=== PATIENT | male | born 1970 | race American Indian/Alaskan Native ===

== ENCOUNTER 2017-05-05 14:28 | Emergency (ER) | payer SELFPAY ==
[2017-05-05 15:37] VITALS: BP 110/70
== END 2017-05-06 04:35 | disposition left against medical advice (07) ==
LOC: ED 14:28
DX: Z53.21 Procedure and treatment not carried out due to patient leaving prior to being seen by health care provider (principal)

== ENCOUNTER 2021-05-31 15:15 | Emergency (ER) | payer SELFPAY ==
[2021-05-31] MEDS ORDERED: LORazepam 1 MG TAB PO ONE (16:05)
[2021-05-31 16:24] LABS: Basophils # (Auto) 0.1 K/mm3 (0.0-0.1); Eosinophils # (Auto) 0.1 K/mm3 (0.0-0.4); Eosinophils % (Auto) 1.8 % (0.0-4.3); Hematocrit 43.5 % (35.5-45.6); Hemoglobin 14.1 gm/dl (11.8-15.2); Lymphocytes # (Auto) 2.2 K/mm3 (1.2-5.4); Lymphocytes % (Auto) 38.6 % (13.4-35.0); Mean Corpuscular HGB Conc 33 % (32-34); Mean Corpuscular Volume 94 fl (84-94); Monocytes # (Auto) 0.8 K/mm3 (0.0-0.8); Monocytes % (Auto) 14.5 % (0.0-7.3); Platelet Count 315 K/mm3 (140-440); Red Blood Count 4.65 M/mm3 (3.65-5.03); Red Cell Distribution Width 13.7 % (13.2-15.2)
--- NOTE | 2021-05-31 16:29 | Emergency Department Report ---
HPI - General Chief Complaint: Chest Pain Time Seen by Provider: 05/31/21 15:43 - HPI HPI: 50-year-old male with history of generalized anxiety disorder with somatic symptoms and history of herniated disc in the cervical region presents complaining of 1 week of mid substernal chest pain. He reports that the pain has been constant and feels pressure-like, radiating from the front to the back. Over that same period of time he reports he has had a mild cough and intermittent palpitations. He reports feeling very anxious and says he has not been taking his prescribed anxiety medications because they make him lethargic. He says that these symptoms are similar to somatic symptoms of anxiety he has had in the past. He says he has had several trips to the emergency room with similar symptoms and was diagnosed with anxiety. He has not tried taking anything for his symptoms. He self medicates with marijuana which he smokes. He denies use of any other drugs. He denies any associated radiation of the pain, nausea/vomiting, shortness of breath, headache, vision change, abdominal pain, focal weakness, sensory changes, or any other complaints. He is not vaccinated against COVID-19. He has been diagnosed with COVID-19 twice in the past 2 years. ED Past Medical Hx - Past Medical History Previous Medical History?: Yes Additional medical history: Anxiety disorder - Social History Smoking Status: Former Smoker Substance Use Type: Alcohol, Marijuana - Medications Home Medications: Home Medications Medication Instructions Recorded Confirmed Last Taken Type Acetaminophen/Codeine 1 tab PO Q6H PRN #15 tab 04/24/14 Unknown Rx [Acetaminophen-Codeine #3 TAB] Amoxicillin 500 mg PO TID #30 tablet 04/24/14 Unknown Rx Aspirin EC [Ecotrin] 325 mg PO QDAY #30 tablet. 05/31/21 Unknown Rx ED Review of Systems ROS: Stated complaint: CHEST PAIN Other details as noted in HPI Comment: All other systems reviewed and negative Constitutional: denies: chills, fever Eyes: denies: eye pain, vision change ENT: denies: throat pain Respiratory: cough. denies: shortness of breath Cardiovascular: chest pain, palpitations. denies: syncope Gastrointestinal: denies: abdominal pain, nausea, vomiting Genitourinary: denies: dysuria, frequency Musculoskeletal: back pain. denies: arthralgia Skin: denies: rash, lesions Neurological: denies: headache, weakness, numbness Psychiatric: anxiety. denies: auditory hallucinations, visual hallucinations, homicidal thoughts, suicidal thoughts Physical Exam - Physical Exam Vital Signs: Vital Signs 05/31/21 15:32 Temperature 98.3 F Pulse Rate 67 Respiratory 18 Rate Blood Pressure 106/62 O2 Sat by Pulse 98 Oximetry Physical Exam: GENERAL: Well developed and well nourished. No acute distress HEAD: Normocephalic. No obvious signs of trauma. ENT: Slightly dry mucous membranes. EYES: Extraocular movements are intact. Pupils are equal round and reactive to light bilaterally NECK: Supple. Full ROM is intact. Trachea is midline. LUNGS: Nonlabored breathing. Equal chest rise bilaterally. Clear to auscultation bilaterally. CARDIOVASCULAR: Regular rate and rhythm. No murmurs or rubs. VASCULAR: Cap refill < 2 seconds ABDOMEN: Abdomen is soft and nondistended. There is mild tenderness to palpation over the right upper quadrant and right lower quadrant, although patient seems sensitive to touch on the left side as well. There is no guarding or rebound tenderness. SKIN: Skin is warm and dry NEURO: Patient is awake, alert, and oriented. 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 No focal deficits. Normal motor and sensory exam throughout. Normal speech. MUSCULOSKELETAL: No obvious deformities. No significant tenderness. Normal ROM throughout. BACK/SPINE: No midline tenderness or step-offs of the C/T/L spine. Bilateral CVA tenderness ED Course Vital Signs 05/31/21 15:32 Temperature 98.3 F Pulse Rate 67 Respiratory 18 Rate Blood Pressure 106/62 O2 Sat by Pulse 98 Oximetry ED Medical Decision Making - Lab Data Result diagrams: 05/31/21 16:09 05/31/21 16:09 Lab Results 05/31/21 05/31/21 05/31/21 Range/Units 16:04 16:09 16:09 WBC 5.7 (4.5-11.0) K/mm3 RBC 4.65 (3.65-5.03) M/mm3 Hgb 14.1 (11.8-15.2) gm/dl Hct 43.5 (35.5-45.6) % MCV 94 (84-94) fl MCH 30 (28-32) pg MCHC 33 (32-34) % RDW 13.7 (13.2-15.2) % Plt Count 315 (140-440) K/mm3 Lymph % (Auto) 38.6 H (13.4-35.0) % [place] % (Auto) 14.5 H (0.0-7.3) % Eos % (Auto) 1.8 (0.0-4.3) % Baso % (Auto) 1.0 (0.0-1.8) % Lymph # (Auto) 2.2 (1.2-5.4) K/mm3 [place] # (Auto) 0.8 (0.0-0.8) K/mm3 Eos # (Auto) 0.1 (0.0-0.4) K/mm3 Baso # (Auto) 0.1 (0.0-0.1) K/mm3 Seg Neutrophils % 44.1 (40.0-70.0) % Seg Neutrophils # 2.5 (1.8-7.7) K/mm3 PT (12.2-14.9) Sec. INR (0.87-1.13) APTT (24.2-36.6) Sec. D-Dimer (0-234) ng/mlDDU Sodium 142 (137-145) mmol/L Potassium 4.2 (3.6-5.0) mmol/L Chloride 106.3 (98-107) mmol/L Carbon Dioxide 24 (22-30) mmol/L Anion Gap 16 mmol/L BUN 13 (9-20) mg/dL Creatinine 0.9 (0.8-1.3) mg/dL Estimated GFR > 60 ml/min BUN/Creatinine Ratio 14 % Glucose 89 (75-100) mg/dL Calcium 9.4 (8.4-10.2) mg/dL Total Bilirubin 0.30 (0.1-1.2) mg/dL Direct Bilirubin < 0.2 (0-0.2) mg/dL Indirect Bilirubin 0.1 mg/dL AST 17 (5-40) units/L ALT 13 (7-56) units/L Alkaline Phosphatase 79 (35-129) units/L Troponin T < 0.010 (0.00-0.029) ng/mL Total Protein 7.1 (6.3-8.2) g/dL Albumin 4.4 (3.9-5) g/dL Albumin/Globulin Ratio 1.6 % Lipase 71 H (13-60) units/L Urine Color (Yellow) Urine Turbidity (Clear) Urine pH (5.0-7.0) Ur Specific [place] (1.003-1.030) Urine Protein (Negative) mg/dL Urine Glucose (UA) (Negative) mg/dL Urine Ketones (Negative) mg/dL Urine Blood (Negative) Urine Nitrite (Negative) Urine Bilirubin (Negative) Urine Urobilinogen (<2.0) mg/dL Ur Leukocyte Esterase (Negative) Urine WBC (Auto) (0.0-6.0) /HPF Urine RBC (Auto) (0.0-6.0) /HPF Urine Opiates Screen Negative Urine Methadone Screen Negative Ur Barbiturates Screen Negative Ur Phencyclidine Scrn Negative Ur Amphetamines Screen Negative U Benzodiazepines Scrn Negative Urine Cocaine Screen Negative U Marijuana (THC) Screen Positive Drugs of Abuse Note Disclamer 05/31/21 05/31/21 05/31/21 Range/Units 18:48 19:26 20:53 WBC (4.5-11.0) K/mm3 RBC (3.65-5.03) M/mm3 Hgb (11.8-15.2) gm/dl Hct (35.5-45.6) % MCV (84-94) fl MCH (28-32) pg MCHC (32-34) % RDW (13.2-15.2) % Plt Count (140-440) K/mm3 Lymph % (Auto) (13.4-35.0) % [place] % (Auto) (0.0-7.3) % Eos % (Auto) (0.0-4.3) % Baso % (Auto) (0.0-1.8) % Lymph # (Auto) (1.2-5.4) K/mm3 [place] # (Auto) (0.0-0.8) K/mm3 Eos # (Auto) (0.0-0.4) K/mm3 Baso # (Auto) (0.0-0.1) K/mm3 Seg Neutrophils % (40.0-70.0) % Seg Neutrophils # (1.8-7.7) K/mm3 PT 13.9 (12.2-14.9) Sec. INR 0.96 (0.87-1.13) APTT 27.4 (24.2-36.6) Sec. D-Dimer 160.52 (0-234) ng/mlDDU Sodium (137-145) mmol/L Potassium (3.6-5.0) mmol/L Chloride (98-107) mmol/L Carbon Dioxide (22-30) mmol/L Anion Gap mmol/L BUN (9-20) mg/dL Creatinine (0.8-1.3) mg/dL Estimated GFR ml/min BUN/Creatinine Ratio % Glucose (75-100) mg/dL Calcium (8.4-10.2) mg/dL Total Bilirubin (0.1-1.2) mg/dL Direct Bilirubin (0-0.2) mg/dL Indirect Bilirubin mg/dL AST (5-40) units/L ALT (7-56) units/L Alkaline Phosphatase (35-129) units/L Troponin T < 0.010 (0.00-0.029) ng/mL Total Protein (6.3-8.2) g/dL Albumin (3.9-5) g/dL Albumin/Globulin Ratio % Lipase (13-60) units/L Urine Color Yellow (Yellow) Urine Turbidity Clear (Clear) Urine pH 6.0 (5.0-7.0) Ur Specific [place] 1.013 (1.003-1.030) Urine Protein <15 mg/dl (Negative) mg/dL Urine Glucose (UA) Neg (Negative) mg/dL Urine Ketones Neg (Negative) mg/dL Urine Blood Neg (Negative) Urine Nitrite Neg (Negative) Urine Bilirubin Neg (Negative) Urine Urobilinogen < 2.0 (<2.0) mg/dL Ur Leukocyte Esterase Neg (Negative) Urine WBC (Auto) < 1.0 (0.0-6.0) /HPF Urine RBC (Auto) < 1.0 (0.0-6.0) /HPF Urine Opiates Screen Urine Methadone Screen Ur Barbiturates Screen Ur Phencyclidine Scrn Ur Amphetamines Screen U Benzodiazepines Scrn Urine Cocaine Screen U Marijuana (THC) Screen Drugs of Abuse Note - EKG Data -: EKG Interpreted by Me - EKG Data 05/31/21 17:33 Normal sinus rhythm. Normal axis. Normal intervals. No ectopy. Early repolarization. No significant ST segment or T wave abnormalities. - Radiology Data Radiology results: report reviewed - Medical Decision Making 50-year-old male with history of anxiety with common somatic symptoms, usually manifesting as chest pain presents complaining of 1 week of mid substernal chest pain radiating to the back, severe anxiety, intermittent palpitations as well as cough. Patient admits he has not been taking his anxiety medications because he says it makes him lethargic. He says he has had many presentations to the emergency department in the past for similar symptoms as a result of his anxiety. He is afebrile and with normal vital signs. On physical examination he has a nonfocal neurologic exam. Lungs are clear to auscultation. Heart soun ds are normal. He has slightly dry mucous membranes. He has slight tenderness to palpation of the right upper quadrant and right lower quadrant without guarding or rebound tenderness. Difficult to discern whether this represents true tenderness as patient did not complain of abdominal pain until the physical exam but is also sensitive on the left as well. The patient reports pain in his back but he has no mid spinal tenderness. We will proceed with broad work- up with a full set of labs, EKG, and chest x-ray. We discussed options regarding the patient's abdominal tenderness and I offered the possibility of CT scan of the abdomen but did advise him of the risk of radiation exposure. He does not want to have radiation exposure if not necessary and therefore we will proceed with work-up with labs and other studies as mentioned. We will give 1 dose of p.o. Ativan and reassess the patient's symptoms to determine whether further work-up of abdominal tenderness is warranted. Chest x-ray shows no acute abnormalities Labs have resulted and reveal no significant leukocytosis or anemia. Creatinine is within normal range and there are no significant electrolyte abnormalities. Troponin is negative. The patient's heart score is 1. We will therefore obtain repeat troponin. Lipase is mildly elevated at 71. We will obtain right upper quadrant ultrasound to assess for evidence of cholelithiasis versus cholecystitis versus choledocholithiasis. On repeat assessment at 5 PM, the patient is resting comfortably in the bed. He reports that his anxiety and chest pain have entirely resolved. However, he remains with some mild pain in his right flank. Right upper quadrant ultrasound reveals no acute abnormalities. Repeat assessment at 6:45 PM, the patient remains with a significant pain and tenderness in his right flank and right lower back. Given the persistence of this pain we will obtain CTA of the chest/abdomen to assess for evidence of dissection versus AAA versus other intrathoracic or intra-abdominal abnormality to explain the patient's presentation. At 8:17 PM I received a call from radiology. CTA of the chest/abdomen reveals no evidence of dissection or aneurysm of the aorta but there is findings highly suggestive of left lower lobe pulmonary embolism. Radiologist reports that given the protocol of the CT the diagnosis cannot be definitive but nonetheless is his interpretation. I have ordered coag studies and D-dimer and asked the patient to be moved to a monitored bed. He remains with normal vital signs on the monitor. I discussed with the patient the diagnosis of possible PE and the treatment which is initiation of anticoagulation with blood thinners. The patient was adamant that he does not want to be on blood thinners and says no matter what he will not be put on blood thinners. Given that the diagnosis cannot be definitively proved based on the protocol of the CTA, I recommended to the patient that he see his primary care doctor within the next several days to request repeat CTA of the chest to assess for pulmonary embolism. Because the patient refuses to take blood thinners, I have asked that he take 325 mg of aspirin daily which she has agreed to do until advised otherwise by his primary care doctor. He understands that refusing anticoagulation confers significant risk of temporary/permanent disability and even . He still wants to proceed with discharge. Critical Care Time: Yes Critical care time in (mins) excluding proc time.: 40 Critical care attestation.: . Critical care time was spent in the evaluation/assessment, work-up, and management of chest pain and flank pain and pulmonary embolism requiring multiple types of advanced imaging, repeat reassessment and evaluation, extensive discussion with patient, interpretation of labs and vital signs ED Disposition Clinical Impression: Anxiety, Chest pain, Pulmonary embolism on left Disposition: 01 HOME / SELF CARE / HOMELESS Is pt being admited?: No Condition: Stable Instructions: Nonspecific Chest Pain, Adult, Pulmonary Embolism Additional Instructions: CTA of the chest revealed a possible pulmonary embolism in your left lung which is a blood clot. You have declined blood thinners and so I have recommended that you take full-strength aspirin 325 mg daily until you are able to see your primary care doctor for possible repeat scanning to confirm the presence of a blood clot. Return to the emergency department should you develop any worsening symptoms or new health concerns. Prescriptions: Aspirin EC [Ecotrin] 325 mg PO QDAY #30 tablet. Referrals: [facility] [Provider Group] - 3-5 Days Heart Score - HEART Score History: Slightly suspicious EKG: Normal Age: 45-65 Risk factors: No known risk factors Troponin: < normal limit HEART Score: 1 - EKG Read Time Time EKG Completed: 15:38 EKG Read Time: 15:42
--- NOTE | 2021-05-31 16:31 | XRay Report ---
CHEST 2 VIEWS INDICATION: cough. COMPARISON: None. FINDINGS: Support devices: None. Heart: Within normal limits. Lungs/Pleura: No acute air space or interstitial disease. No significant pleural effusion. IMPRESSION: No acute findings. Signer Name: Daniel Sims MD Signed: 05/31/2021 4:26 PM Workstation Name: [id number]
[2021-05-31 16:44] LABS: Alanine Aminotransferase 13 units/L (7-56); Albumin 4.4 g/dL (3.9-5); BUN/Creatinine Ratio 14; Blood Urea Nitrogen 13 mg/dL (9-20); Calcium 9.4 mg/dL (8.4-10.2); Hemolysis Index 18
[2021-05-31 16:47] LABS: Bilirubin,Direct < 0.2 mg/dL (0-0.2)
--- NOTE | 2021-05-31 18:44 | Ultrasound Report ---
US abdomen limited INDICATION: RUQ tenderness COMPARISON: None. FINDINGS: Pancreas: No significant abnormality identified in the visualized portions of the pancreas. Abdominal aorta: No significant abnormality. IVC: Normal. Liver: No significant abnormality. Gallbladder: Small quantity of sludge. No gallstones, gallbladder wall thickening, or pericholecystic fluid. Bile ducts: The common bile duct measures 5 mm. Right Kidney: No significant abnormality. Additional findings: No significant additional findings. IMPRESSION: No significant sonographic abnormality. Signer Name: Juan Kwon MD Signed: 05/31/2021 6:39 PM Workstation Name: [id number]
[2021-05-31 18:57] LABS: Amphetamine Screen,Urine Negative; Benzodiazepines Screen,Urine Negative; Cocaine Screen,Urine Negative; Methadone Screen,Urine Negative; Opiate Screen,Urine Negative
[2021-05-31 19:00] LABS: Bilirubin,Urine NEG (Negative); Blood,Urine NEG (Negative); Color,Urine Yellow (Yellow); Protein,Urine <15 mg/dL mg/dL (Negative); Urobilinogen,Urine < 2.0 mg/dL (<2.0)
[2021-05-31 19:24] LABS: Cannabinoid Screen,Urine Positive
[2021-05-31 19:32] LABS: RBC,Urine < 1.0 /HPF (0.0-6.0); WBC,Urine < 1.0 /HPF (0.0-6.0)
--- NOTE | 2021-05-31 20:23 | Cat Scan Report ---
. CT angio abdomen pelvis INDICATION / CLINICAL INFORMATION: assess for PE and AAA. TECHNIQUE: CTA of the abdomen and pelvis. MIPS were performed. All CT scans at this location are performed using CT dose reduction for ALARA by means of automated exposure control. COMPARISON: None available. FINDINGS: VASCULATURE: Aorta is normal in caliber. No dissection. No aneurysm. The celiac, hepatic, superior mesenteric, inferior mesenteric arteries, and bilateral rashid arteries a re all patent without occlusion or hemodynamically significant stenosis. ABDOMEN and PELVIS: Lung bases: No significant abnormality. Liver: No significant abnormality. Biliary: No significant abnormality. Spleen: No significant abnormality. Unenlarged. Pancreas: No significant abnormality. Adrenals: No significant abnormality. Kidneys: No significant abnormality. Lymphatics: No lymphadenopathy. Bowel/Peritoneum: No significant abnormality. Pelvis: No significant abnormality. Osseous Structures: No aggressive osseous lesion. Additional Findings: None IMPRESSION: 1. No dissection or aneurysm of the aorta. No acute abnormality of the abdomen or pelvis. Signer Name: Juan Kwon MD Signed: 05/31/2021 8:19 PM Workstation Name: [id number]
--- NOTE | 2021-05-31 20:25 | Cat Scan Report ---
CT angio chest INDICATION / CLINICAL INFORMATION: assess for PE and AAA. TECHNIQUE: Axial CT images were obtained through the chest after injection of IV contrast. 3 plane MIP and/or 3D reconstructions were produced. All CT scans at this location are performed using CT dose reduction f or ALARA by means of automated exposure control. COMPARISON: None available. FINDINGS: PULMONARY ARTERIES: Poor contrast opacification of the pulmonary arteries which decreases the sensiti vity and specificity of this exam. There are filling defects within the left lower lobe pulmonary art eries (images 152 and 163 of series 2), which are suspicious for pulmonary emboli. AORTA: Normal caliber. No dissection. HEART: No significant abnormality. MEDIASTINUM / ILAN: No significant abnormality. LUNGS: Lungs are clear No pleural effusion. No pneumothorax. ADDITIONAL FINDINGS: None. UPPER ABDOMEN: No acute findings. SKELETAL STRUCTURES: No significant osseous abnormality. IMPRESSION: 1. Poor contrast opacification of pulmonary arteries which decreases the specificity of the exam. How ever, there is small quantity of suspected pulmonary emboli seen within the left lower lobe pulmonary arteries. 2. No dissection or aneurysm of the aorta. I informed Dr Rees at 7:20 who informed me they have left sided chest pain. Signer Name: Juan Kwon MD Signed: 05/31/2021 8:21 PM Workstation Name: [id number]
[2021-05-31 21:15] LABS: INR 0.96 (0.87-1.13)
[2021-05-31 21:16] LABS: Partial Thromboplastin Time 27.4 Sec. (24.2-36.6)
[2021-05-31 22:37] VITALS: BP 124/79
--- NOTE | 2021-06-02 14:23 | Electrocardiograph Report ---
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
== END 2021-05-31 22:35 | disposition home or self-care (01) ==
LOC: ED 15:15
DX: F41.9 Anxiety disorder, unspecified (principal); I26.99 Other pulmonary embolism without acute cor pulmonale; F12.90 Cannabis use, unspecified, uncomplicated; Z72.89 Other problems related to lifestyle; Z87.891 Personal history of nicotine dependence; R79.1 Abnormal coagulation profile; Z79.899 Other long term (current) drug therapy
CPT/HCPCS: 36415; 71046; 71275; 74174; 76705; 80048; 80076; 80307; 81001; 83690; 84484; 85025; 85379; 85610; 85730; 93005; 93010; 99284; Q9967